=== PATIENT | female | born 1950 | race Two or more races ===

== ENCOUNTER 2023-02-04 14:37 | Outpatient (AMB) | payer MEDICARE, MEDICAID, SELFPAY ==
[2023-02-04 14:43] VITALS: BP 136/88; PULSE 77; O2SAT 99
--- NOTE | 2023-02-04 14:43 | A.OFFVIS_ITS ---
Intake Vital Signs 02/04/23 14:43 Weight 148 lb 2 oz BP 136/88 Blood Pressure Location Rt brachial Position Sitting Pulse 77 Pulse Source Pulse Oximeter Pulse Oximetry (%) 99 Oxygen Delivery Method Room Air Intake Visit Reasons: AIRPORT SCREENER-Sleep Disorder Intake Note: Pt presents as a NPV for sleep disorder Head Insulation Board Saw Operator Required: No Head Insulation Board Saw Operator Name: Pts son Accompanied by: Son Allergies No Known Allergies Allergy (Verified 02/04/23 14:56) HPI HPI Comments History of Present Illness Details 72 y/o female patient with HTN and T2 DM presents with her son for new in-person visit for sleep consultation. Pt's son reports that she is always tired and sleeps too much. She sleeps well at night but still feels tired and keeps falling asleep in the chair. She feels lack of energy and not interested in any physical activity. Pt has legs pain and does not want to walk. Pt's son reports that she snore very loud and witnessed apnea spells, so he needs to wake her up. Pt's son takes care of her 24 hrs, and also nurse visit every morning. Sleep questionnaire: Have you ever been diagnosed with a sleep disorder? No. Have you ever had a sleep study in the past? No. Have you ever been treated for a sleep disorder? No. Do you take medications for a sleep disorder? No. Do you snore? Yes. Do you wake up gasping at night? No. Do you have episodes of apneas? Yes. If yes, are they witnessed? Yes, by her son. Do you have episodes of nocturnal chest pain or dyspnea? Yes. Do you have difficulty initiating sleep? No. Do you have difficulty maintaining sleep? No. Do you wake up tired? Yes. Do you have headaches upon awakening? No. Do you wake up with dry mouth or throat? No. Do you have GERD? No. Do you have nocturia? Yes. Do you have nocturnal leg cramps? No. Do you have symptoms of restless legs? No. Do you act out your dreams? No. Sleep hygiene questionnaire: What is your usual sleep routine? Usual bedtime is at 8-9 pm; Usual wake up time is at 7-8 am. Do you take naps? Yes. Is your sleep environment cool, dark, and quiet? Yes. Do you exercise? No due to legs pain. Do you take caffeine or other stimulants? 1 cup of coffee in the morning. Do you use electronics in bed? No. What is your work schedule? N/A. Hypersomnolence questionnaire: Do you have daytime tiredness or fatigue? Yes.. Do you easily fall asleep when inactive? Yes. Have you ever had episodes of sudden weakness? No. Have you ever had episodes of sudden weakness associated with strong emotions? No. PFSH Medical History (Updated 02/04/23 @ 15:46 by Yuliana Haro CNP) Anemia Asthma DVT (deep venous thrombosis) HLD (hyperlipidemia) Kidney disease Surgical History (Updated 02/04/23 @ 14:59 by Nikkie Sanchez CMA) H/O heart surgery Family History (Updated 02/04/23 @ 15:02 by Nikkie Sanchez CMA) Maternal Grandmother Cancer Social History (Updated 02/04/23 @ 15:02 by Nikkie Sanchez CMA) Alcohol intake: never Patient Tobacco Use Status: Never used Tobacco Review of Systems Const All systems reviewed & are unremarkable except as noted in HPI and below ENT Reports Normal hearing present Neuro Reports Normal hearing present Physical Exam Vital Signs: Last Vital Signs Pulse 77 02/04/23 14:43 BP 136/88 02/04/23 14:43 Pulse Ox 99 02/04/23 14:43 Oxygen Delivery Method Room Air 02/04/23 14:43 Const General: cooperative and tired appearing Nutritional Appearance: obese Orientation/consciousness: oriented to person Limitations: ambulation with walker Neck Neck: Yes full ROM and Yes supple Resp Effort & Inspection: normal respiratory effort and able to speak in complete sentences Neuro General: oriented to person Cranial nerves: Yes Bilaterally intact EOM present, Yes Normal facial strength present, Yes Midline tongue present, Yes Symmetric palate elevation present, Yes Normal hearing present, Yes Ability to bilaterally rotate head present and Yes Ability to bilaterally elevate shoulders present Motor exam (neuro): 5/5 motor strength present throughout, Pronator motor function not present and no tremor noted Psych Appearance: grossly normal Affect: normal affect Attitude: cooperative Assessment & Plan Assessment & Plan (1) Snoring: Code(s): R06.83 - Snoring (2) Excessive daytime sleepiness: Code(s): G47.19 - Other hypersomnia Plan Pt is advised to undergo in lab sleep study to assess for sleep apnea. Will f/u with pt after study to discuss results and appropriate treatment options. Advised patient to increase physical activity during daytime. Pt to call with any worsening concerns or questions. Orders: Orders RT PSG in-lab sleep study 02/04/23 E66.9 - Obesity, unspecified, G47.19 - Other hypersomnia, I10 - Essential (primary) hypertension, I82.409 - Acute embolism and thrombosis of unspecified deep veins of unspecified lower extremity, R06.83 - Snoring, R41.3 - Other amnesia Coding Level of Care Code New Pt Level 4 (42477) Diagnoses Snoring R06.83 Excessive daytime sleepiness G47.19
== END 2023-02-04 15:50 | disposition home or self-care (01) ==
PROVIDERS: PCP Nurse Practitioner; Visit Provider Nurse Practitioner Family
DX: R06.83 Snoring (principal); G47.19 Other hypersomnia
CPT/HCPCS: 99204

== ENCOUNTER → 2023-02-04 14:37 | Outpatient (BNVA) | payer MEDICARE, MEDICAID, SELFPAY | PROVIDERS: PCP Nurse Practitioner; Visit Provider Nurse Practitioner Family | DX: G47.19 Other hypersomnia (principal); R06.83 Snoring | CPT/HCPCS: 99202 ==

== ENCOUNTER → 2023-03-17 20:30 | Outpatient (REF) | payer MEDICARE, MEDICAID, SELFPAY | LOC: HO.SL 20:30 | PROVIDERS: Visit Provider Nurse Practitioner Family | DX: G47.19 Other hypersomnia (principal); R06.83 Snoring; R41.3 Other amnesia; I10 Essential (primary) hypertension; E66.9 Obesity, unspecified; I82.409 Acute embolism and thrombosis of unspecified deep veins of unspecified lower extremity | CPT/HCPCS: 95810 ==

== ENCOUNTER → 2023-03-17 21:37 | Outpatient (BNV) | payer MEDICARE, MEDICAID, SELFPAY | PROVIDERS: Visit Provider Psychiatry & Neurology Neurology | DX: G47.33 Obstructive sleep apnea (adult) (pediatric) (principal) | CPT/HCPCS: 95810 ==